=== PATIENT | male | born 1960 | race Caucasian/White ===

== ENCOUNTER 2019-08-08 15:35 | Emergency (ER) | payer OTHER ==
[~2019-08-08] VITALS: Ht 172.7 cm; Wt 71.8 kg
--- NOTE | 2019-08-08 16:13 | NUR ---
Patient's called, states the family was out water skiing today, states patient returned to boat after skiing around 1:30pm. states patient kept saying "Did I black out?" and stating that he was having an "out of body experience" and a "mind journey." states she did not see the patient sustain any kind of injury, states patient has not had any alcohol today, denies any drug use by the patient.
--- NOTE | 2019-08-08 16:14 | ED Neurological Problem ---
General Chief Complaint: Altered Mental Status Stated Complaint: FELL/HEAD PAIN Nursing Triage Note: Patient states he has been on a "mind journey" and does not know why he is here at the ER. He states he may have blacked out but does not remember anything. Nursing Sepsis Screen: No Definite Risk Source: patient, spouse Exam Limitations: clinical condition History of Present Illness Date Seen by Provider: Aug 08, 2019 Time Seen by Provider: 15:53 Initial Comments Patient presents ER by private conveyance with his spouse and chief complaint that he is feeling confused today. He says he feels like he went on a time warp and feels really out of his head. His says today they were skiing and she does not think he had any alcohol and denies any drug use. Last night he had 3 beers according to the patient and . She said she did not ever see him wipe out or fall or hit his head today. She said when they got done on her third round of skiing when he came in he was just talking about how he felt really confused and weird like he blacked out. Denies this is happened before. No history of psych. No significant medical history but he does take a statin and CoQ10 and aspirin daily. He follows with a primary care doctor in the [facility] where he is from. He's not having any pain except for a mild headache global non-throbbing. No visual disturbances. No weakness no facial asymmetry or difficulty with speech. Patient does admit to a distant history of mushrooms and cocaine but nothing recent. He denies any other bowls are using vaporizers or smoking anything. He says he does occasionally uses cannabis. Patient denies fever, chills nausea vomiting diarrhea constipation. Patient cannot remember the last time that he felt normal. His says even though he stated he was confused he would answer all questions appropriately but just kept going on about feeling like he lost some time. Allergies and Home Medications Allergies Coded Allergies: No Known Drug Allergies (Unverified , 08/08/19) Patient Home Medication List Home Medication List Reviewed: Yes Review of Systems Review of Systems Constitutional: No chills, No diaphoresis, No fever, No malaise Eyes: Denies Blindness, Denies Blurred Vision Ears, Nose, Mouth, Throat: denies ear pain, denies ear discharge Respiratory: No cough, No short of breath Cardiovascular: No chest pain, No edema Gastrointestinal: No abdominal pain, No constipation, No nausea, No vomiting Genitourinary: No dysuria, No frequency, No hematuria, No pain Musculoskeletal: No back pain, No joint pain, No joint swelling Skin: No pruritus, No rash All Other Systems Reviewed Negative Unless Noted: Yes Past Zpclouh-Emjhuv-Nvfmxe Hx Patient Social History Alcohol Use: Occasionally Uses Alcohol Beverage of Choice: Beer (3 beers last night) Recreational Drug Use: No Drug of Choice: distant history of mushrooms and cocaine; current occasionally use cannabis Smoking Status: Never a Smoker Recent Foreign Travel: No Contact w/Someone Who Travel: No Recent Infectious Disease Expo: No Physical Exam Vital Signs Vital Signs - First Documented 08/08/19 15:48 Temp 36.4 Pulse 79 Resp 18 B/P (MAP) 144/87 (106) Pulse Ox 96 O2 Delivery Room Air Capillary Refill : Less Than 3 Seconds Height, Weight, BMI Height: '" Weight: lbs. oz. 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, no motor/sensory deficits, alert, normal mood/affect; No oriented x 3 (oriented to person and place but not time or situation) Crainal Nerves: normal hearing, normal speech, PERRL Motor/Sensory: no motor deficit, no sensory deficit, no pronator drift Skin: normal color, warm/dry Progress/Results/Core Measures Results/Orders Lab Results Laboratory Tests Test 08/08/19 16:00 08/08/19 16:40 Range/Units Urine Color PALE YELLOW Urine Clarity CLEAR Urine pH 6.0 5-9 Urine Specific [place] <=1.005 1.016-1.022 Urine Protein NEGATIVE NEGATIVE Urine Glucose (UA) NEGATIVE NEGATIVE Urine Ketones NEGATIVE NEGATIVE Urine Nitrite NEGATIVE NEGATIVE Urine Bilirubin NEGATIVE NEGATIVE Urine Urobilinogen 0.2 < = 1.0 MG/DL Urine Leukocyte Esterase NEGATIVE NEGATIVE Urine RBC (Auto) NEGATIVE NEGATIVE Urine RBC NONE /HPF Urine WBC RARE /HPF Urine Squamous Epithelial Cells RARE /HPF Urine Crystals NONE /LPF Urine Bacteria NEGATIVE /HPF Urine Casts NONE /LPF Urine Mucus NEGATIVE /LPF Urine Culture Indicated NO Urine Opiates Screen NEGATIVE NEGATIVE Urine Oxycodone Screen NEGATIVE NEGATIVE Urine Methadone Screen NEGATIVE NEGATIVE Urine Propoxyphene Screen NEGATIVE NEGATIVE Urine Barbiturates Screen NEGATIVE NEGATIVE Ur Tricyclic Antidepressants Screen NEGATIVE NEGATIVE Urine Phencyclidine Screen NEGATIVE NEGATIVE Urine Amphetamines Screen NEGATIVE NEGATIVE Urine Methamphetamines Screen NEGATIVE NEGATIVE Urine Benzodiazepines Screen NEGATIVE NEGATIVE Urine Cocaine Screen NEGATIVE NEGATIVE Urine Cannabinoids Screen NEGATIVE NEGATIVE White Blood Count 9.7 4.3-11.0 10^3/uL Red Blood Count 4.97 4.35-5.85 10^6/uL Hemoglobin 16.1 13.3-17.7 G/DL Hematocrit 46 40-54 % Mean Corpuscular Volume 92 80-99 FL Mean Corpuscular Hemoglobin 32 25-34 PG Mean Corpuscular Hemoglobin Concent 35 32-36 G/DL Red Cell Distribution Width 12.9 10.0-14.5 % Platelet Count 230 130-400 10^3/uL Mean Platelet Volume 9.2 7.4-10.4 FL Neutrophils (%) (Auto) 86 H 42-75 % Lymphocytes (%) (Auto) 9 L 12-44 % Monocytes (%) (Auto) 4 0-12 % Eosinophils (%) (Auto) 0 0-10 % Basophils (%) (Auto) 1 0-10 % Neutrophils # (Auto) 8.3 H 1.8-7.8 X 10^3 Lymphocytes # (Auto) 0.9 L 1.0-4.0 X 10^3 Monocytes # (Auto) 0.4 0.0-1.0 X 10^3 Eosinophils # (Auto) 0.0 0.0-0.3 10^3/uL Basophils # (Auto) 0.1 0.0-0.1 10^3/uL Sodium Level 142 135-145 MMOL/L Potassium Level 3.7 3.6-5.0 MMOL/L Chloride Level 104 98-107 MMOL/L Carbon Dioxide Level 25 21-32 MMOL/L Anion Gap 13 5-14 MMOL/L Blood Urea Nitrogen 17 7-18 MG/DL Creatinine 1.21 0.60-1.30 MG/DL Estimat Glomerular Filtration Rate > 60 BUN/Creatinine Ratio 14 Glucose Level 102 70-105 MG/DL Glucometer 98 70-110 MG/DL Calcium Level 9.0 8.5-10.1 MG/DL Corrected Calcium 8.8 8.5-10.1 MG/DL Total Bilirubin 0.6 0.1-1.0 MG/DL Aspartate Amino Transf (AST/SGOT) 19 5-34 U/L Alanine Aminotransferase (ALT/SGPT) 19 0-55 U/L Alkaline Phosphatase 73 40-136 U/L Total Protein 6.8 6.4-8.2 GM/DL Albumin 4.2 3.2-4.5 GM/DL Salicylates Level < 5.0 L 5.0-20.0 MG/DL Acetaminophen Level < 10 L 10-30 UG/ML Serum Alcohol < 10 <10 MG/DL My Orders Orders - RYAN ZHONG Ua Culture If Indicated (08/08/19 15:41) Cbc With Automated Diff (08/08/19 16:07) Comprehensive Metabolic Panel (08/08/19 16:07) Alcohol (08/08/19 16:07) Acetaminophen (08/08/19 16:07) Salicylate (08/08/19 16:07) Ekg Tracing (08/08/19 16:07) Ed Iv/Invasive Line Start (08/08/19 16:07) Monitor-Rhythm Ecg Trace Only (08/08/19 16:07) Ed Iv/Invasive Line Start (08/08/19 16:07) Ct Head Wo (08/08/19 16:07) Chest 1 View Ap/Pa Only (08/08/19 16:07) Lactated Ringers (Lr 1000 Ml Iv Solution (08/08/19 16:15) Accucheck Stat ONCE (08/08/19 16:31) Drug Screen Stat (Urine) (08/08/19 17:41) Vital Signs/I&O 08/08/19 15:48 Temp 36.4 Pulse 79 Resp 18 B/P (MAP) 144/87 (106) Pulse Ox 96 O2 Delivery Room Air Blood Pressure Mean: 106 Progress Progress Note #1: Time: 16:17 Progress Note Patient is a marginal blood pressure 144 systolic and a history of today onset fugue state and confusion about what day of the week it is as well as what's going on. He does know where he is at where he is from and recites his distant history clearly. He has asked more than once who brought him to the ER and where his is. Looking for organic causes of his altered mental state we'll get a CT of his head without IV contrast, chest x-ray and labs as well as a urine to look for toxicology and signs of infection. We'll give him a liter of fluids although he did produce a fair amount of dilute urine. Progress Note #2: Time: 18:27 Progress Note Unremarkable laboratory radiographic examination. On reexamination the patient says he feels much more clear and is able to piece together more of his previous 6 hours. He says he credits the IV fluids with helping him feel better and he has urinated several times. We have offered observation stay and the patient says he would prefer to go home. His plan is to go back to [place] tomorrow and see his GP. We have encouraged him to follow-up with the primary care provider and talk about potential referral to the appropriate resources. At this time I would not label this as a delirium but rather a dissociative amnesia that may have its roots in a psychological explanation but further rule out testing would need to be performed. We could not find any evidence of emergencies on examination tonight. He is alert and oriented 4 but has a 6 hour period prior to now where he has a hard time remembering the details. He now remembers having gotten up to go fishing this morning and then getting on the [place] to go skiing but he does not remember coming off [place] nor getting dressed or how he got to the ER. After talking with his on the phone he is still comfortable with going home tonight. Initial ECG Impression Date: Aug 08, 2019 Initial ECG Impression Time: 16:41 Initial ECG Rate: 75 Initial ECG Rhythm: Normal Sinus Initial ECG Intervals: Normal Initial ECG Impression: Normal Initial ECG Comparisson: No Previous ECG Available Comment Normal sinus rhythm without clinically relevant ST elevation or depression. Diagnostic Imaging Diagonstic Imaging: Xray Plain Films/CT/US/NM/MRI: chest (1v) Comments [facility] [place], [place] NAME: PAULY IVORY MED REC#: [id number] PT STATUS: REG ER : 1960 PHYSICIAN: RYAN ZHONG MD ADMIT DATE: 08/08/19/ER FS Signed Date of Exam:08/08/19 CHEST 1 VIEW AP/PA ONLY Indication: Altered mental status Portable chest 4:19 PM Heart size and pulmonary vascularity are normal. Lungs are clear. There are no effusions or pneumothoraces. IMPRESSION: Negative chest Dictated by: Dictated on workstation # [id number] Dict: 08/08/19 1628 Trans: 08/08/19 1629 TB [id number] Interpreted by: ENIO PHILLIPS MD Electronically signed by: ENIO PHILLIPS MD 08/08/191628 Reviewed: Reviewed by Me Diagonstic Imaging: CT Plain Films/CT/US/NM/MRI: head Comments NAME: PAULY IVORY MED REC#: [id number] PT STATUS: REG ER : 1960 PHYSICIAN: RYAN ZHONG MD ADMIT DATE: 08/08/19/ER FS Signed Date of Exam:08/08/19 CT HEAD WO PROCEDURE: CT head without contrast. TECHNIQUE: Multiple contiguous axial images were obtained through the brain without the use of intravenous contrast. Auto Exposure Controls were utilized during the CT exam to meet ALARA standards for radiation dose reduction. INDICATION: Altered mental status with memory loss. CT HEAD: CT images of the head were obtained. FINDINGS: Ventricles and sulci are within normal limits for size. There is no intracranial hemorrhage identified. There is no abnormal mass effect or shift of midline structures. IMPRESSION: Unremarkable CT of the head. Dictated by: Dictated on workstation # [id number] Dict: 08/08/19 1628 Trans: 08/08/19 1657 CVB [id number] Interpreted by: JUSTIN RUDOLPH MD Electronically signed by: JUSTIN RUDOLPH MD 08/08/19 165 Reviewed: Reviewed by Me Departure Impression Primary Impression: Dissociative amnesia Disposition: 01 HOME, SELF-CARE Condition: Stable Departure-Patient Inst. Decision time for Depature: 18:29 Patient Instructions: Amnesia Add. Discharge Instructions: We are not certain what triggered your episode of dissociative amnesia this afternoon. However we have not been able to detect anything in your laboratory work up nor on a CT of your head or chest x-ray that would explain your symptoms. In the short-term I would encourage you to refrain from alcohol and get plenty of sleep. I would encourage you to call your primary care provider tomorrow and set up a follow-up appointment to discuss this episode and how best to continue working it up in the clinic. They can refer you to appropriate providers for further workup. I would strongly invite you to promptly return to the nearest ER if you have worsening symptoms, chest pain, or shortness of air. All discharge instructions reviewed with patient and/or family. Voiced understanding. RYAN ZHONG Aug 08, 2019 16:14
[2019-08-08] MEDS ORDERED: LACTATED RINGERS 1,000 ML IV SCH (16:15)
[2019-08-08 16:28] LABS: CLARITY,URINE CLEAR; COLOR,URINE PALE YELLOW; PROTEIN,URINE NEGATIVE (NEGATIVE)
[2019-08-08 16:29] LABS: BACTERIA,URINE NEGATIVE /HPF; BILIRUBIN,URINE NEGATIVE (NEGATIVE); GLUCOSE, URINE (UA) NEGATIVE (NEGATIVE); KETONES,URINE NEGATIVE (NEGATIVE); LEUKOCYTE ESTERASE ,URINE NEGATIVE (NEGATIVE); NITRITE,URINE NEGATIVE (NEGATIVE); SQUAMOUS EPITHELIAL CELL,UR RARE /HPF; WBC,URINE RARE /HPF
--- NOTE | 2019-08-08 16:30 | Diagnostic Imaging Report ---
PROCEDURE: CT head without contrast. TECHNIQUE: Multiple contiguous axial images were obtained through the brain without the use of intravenous contrast. Auto Exposure Controls were utilized during the CT exam to meet ALARA standards for radiation dose reduction. INDICATION: Altered mental status with memory loss. CT HEAD: CT images of the head were obtained. FINDINGS: Ventricles and sulci are within normal limits for size. There is no intracranial hemorrhage identified. There is no abnormal mass effect or shift of midline structures. IMPRESSION: Unremarkable CT of the head. Dictated by: Dictated on workstation # [id number]
--- NOTE | 2019-08-08 16:30 | Diagnostic Imaging Report ---
Indication: Altered mental status Portable chest 4:19 PM Heart size and pulmonary vascularity are normal. Lungs are clear. There are no effusions or pneumothoraces. IMPRESSION: Negative chest Dictated by: Dictated on workstation # [id number]
[2019-08-08 16:51] LABS: BASOPHILS # (AUTO) 0.1 10^3/uL (0.0-0.1); BASOPHILS % (AUTO) 1 % (0-10); EOSINOPHILS % (AUTO) 0 % (0-10); HEMATOCRIT 46 % (40-54); HEMOGLOBIN 16.1 G/DL (13.3-17.7); LYMPHOCYTES # (AUTO) 0.9 X 10^3 (1.0-4.0); LYMPHOCYTES % (AUTO) 9 % (12-44); MEAN CORPUSCULAR HEMOGLOBIN 32 PG (25-34); MEAN CORPUSCULAR HGB CONC 35 G/DL (32-36); MEAN CORPUSCULAR VOLUME 92 FL (80-99); MEAN PLATELET VOLUME 9.2 FL (7.4-10.4); MONOCYTES # (AUTO) 0.4 X 10^3 (0.0-1.0); MONOCYTES % (AUTO) 4 % (0-12); NEUTROPHILS # (AUTO) 8.3 X 10^3 (1.8-7.8); NEUTROPHILS % (AUTO) 86 % (42-75); PLATELET COUNT 230 10^3/uL (130-400); RED CELL DISTRIBUTION WIDTH 12.9 % (10.0-14.5); WHITE BLOOD COUNT 9.7 10^3/uL (4.3-11.0)
[2019-08-08 17:10] LABS: CARBON DIOXIDE 25 MMOL/L (21-32); CHLORIDE 104 MMOL/L (98-107); POTASSIUM 3.7 MMOL/L (3.6-5.0); SODIUM 142 MMOL/L (135-145)
[2019-08-08 17:11] LABS: ACETAMINOPHEN < 10 UG/ML (10-30); ALANINE AMINOTRANSFERASE 19 U/L (0-55); ALBUMIN 4.2 GM/DL (3.2-4.5); ALKALINE PHOSPHATASE 73 U/L (40-136); BILIRUBIN,TOTAL 0.6 MG/DL (0.1-1.0); BUN/CREATININE RATIO 14; CREATININE SERUM 1.21 MG/DL (0.60-1.30); GFR ESTIMATED > 60; GLUCOSE 102 MG/DL (70-105); SALICYLATE < 5.0 MG/DL (5.0-20.0); TOTAL PROTEIN 6.8 GM/DL (6.4-8.2)
[2019-08-08 18:00] LABS: AMPHETAMINE SCREEN, URINE NEGATIVE (NEGATIVE); BARBITURATE SCREEN URINE NEGATIVE (NEGATIVE); BENZODIAZEPINES SCREEN URINE NEGATIVE (NEGATIVE); CANNABINOID SCREEN, URINE NEGATIVE (NEGATIVE); COCAINE SCREEN URINE NEGATIVE (NEGATIVE); METHADONE STAT NEGATIVE (NEGATIVE); METHAMPHETAMINE SCREEN URINE S NEGATIVE (NEGATIVE); OPIATE SCREEN URINE NEGATIVE (NEGATIVE); OXYCODONE STAT NEGATIVE (NEGATIVE); PROPOXYPHENE STAT NEGATIVE (NEGATIVE); TRICYCLIC ANTIDEPRESSANTS SCRE NEGATIVE (NEGATIVE)
[2019-08-08 19:00] VITALS: BP 130/70
--- OUTSIDE RECORDS SUMMARY | 2019-08-08 19:18 | XMS REPORT | Continuity of Care Document ---
Author Organization Unknown Address Unknown Phone Unavailable Allergies There is no data. Medications There is no data. Problems There is no data. Procedures There is no data. Results There is no data. Encounters ACCT No. Visit Date/Time Discharge Status Pt. Type Provider Facility Loc./Unit Complaint [id number] 08/08/2019 15:37:[address] Emergency TREVIN COLUNGA, RYAN Bearden [facility] ER FS FELL/HEAD PAIN
== END 2019-08-08 19:00 | disposition home or self-care (01) ==
LOC: ER FS 15:37
DX: F44.0 Dissociative amnesia (principal); Z79.82 Long term (current) use of aspirin; Z79.899 Other long term (current) drug therapy
CPT/HCPCS: 36415; 70450; 71045; 80053; 80306; 81000; 82962; 85025; 93005; 93041; 96360; 99284; G0480 ×3; 80320; 80329